=== PATIENT | female | born 1935 | race Hispanic/Latino ===

== ENCOUNTER 2017-06-22 08:54 | Outpatient (CLI) | payer MEDICARE ==
--- NOTE | 2017-06-24 15:09 | Vascular Lab Report ---
MESENTERIC ARTERIAL DUPLEX Reason for exam: Mesenteric artery insufficiency Comments: The aorta is patent. Flow velocities are within normal limits. Minimal atherosclerotic change is identified. No aneurysmal dilatation is noted. The celiac artery is patent. Flow velocities are extremely elevated. Plaque is seen near the origin. The superior mesenteric artery is patent. Flow velocities are extremely elevated 690 cm/s. Plaque is seen near the origin of the vessel. A caloric challenge was given. The patient did complain of pain during the period of observation afterword. The superior mesenteric artery was interrogated for approximately 20 minutes after the meal. Flow velocities and the skin mesenteric artery increase significantly during the period of observation. Impression: This study is highly suggestive of the presence of mesenteric artery occlusive disease with symptoms. Recommend further evaluation including CT angiography clinically appropriate.
== END 2017-06-22 08:55 | disposition home or self-care (01) ==
LOC: VAS 08:54
PROVIDERS: ATTEND Surgery Vascular Surgery
DX: K55.069 Acute infarction of intestine, part and extent unspecified (principal); I70.213 Atherosclerosis of native arteries of extremities with intermittent claudication, bilateral legs; I20.8 Other forms of angina pectoris; M25.50 Pain in unspecified joint
CPT/HCPCS: 93979

== ENCOUNTER 2017-07-13 08:37 | Outpatient (CLI) | payer MEDICARE ==
[2017-07-13 09:14] LABS: Blood Urea Nitrogen 17 mg/dL (7-17)
--- NOTE | 2017-07-15 15:20 | Cat Scan Report ---
FINAL REPORT EXAM: CT ANGIO ABDOMEN PELVIS HISTORY: OTHER FORMS OF ANGINA PECTORIS COMPARISON: None. TECHNIQUE: Multiple contiguous axial images were obtained from the lung bases to the pubic symphysis after administration of IV contrast. Reformatted sagittal and coronal images were available for review. FINDINGS: Lung bases: Mild peripheral fibrotic changes.. Visualized heart and mediastinum: Pacemaker leads are visualized. Normal heart size. There is a small hiatal hernia. Postsurgical changes of the gastric cardia. Liver: There is a calcified granuloma in the right hepatic lobe. The liver is otherwise normal in appearance.. Spleen: Normal. Pancreas: Normal. Gallbladder and Biliary Tree: The gallbladder has been surgically removed. No biliary ductal dilatation. Adrenal glands: Normal. Kidneys: Symmetric enhancement to both kidneys. No hydronephrosis. Bladder: Normal. Pelvic organs: The uterus has been surgically removed. The bilateral ovaries are not well visualized. Bowel: No focal wall thickening. No evidence of obstruction. The appendix is not clearly identified, but there are no pericecal inflammatory changes. Peritoneum: No significant mesenteric adenopathy. No free air or free fluid. Vasculature: There are scattered atherosclerotic plaques and calcifications of the abdominal aorta. There is no evidence of aneurysm or dissection. There is plaque and calcification at the origin of celiac axis with moderate stenosis. There is some plaque and calcification at the origin of the superior mesenteric artery without significant stenosis. The bilateral renal arteries are patent. The inferior mesenteric artery is patent. There are plaques and calcifications at the aortic bifurcation extending into the bilateral common iliac arteries. There is a small focal dissection at the origin of the left common iliac artery. There is a stent within the right external iliac artery. The left external iliac artery is patent. The bilateral internal iliac arteries are patent. Normal appearance of the portal venous system and the inferior vena cava. Bones and soft tissues: No suspicious osseous lesions. No acute fracture or dislocation. There is diffuse osteopenia.The soft tissues are normal. IMPRESSION: 1. Normal caliber of the abdominal aorta without evidence of dissection or aneurysm. Scattered atherosclerotic plaques and calcifications. 2. 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 3. 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 4. Patent stent within the right external iliac artery. 5. Postsurgical changes of the gastric cardia.
== END 2017-07-13 08:38 | disposition home or self-care (01) ==
LOC: CT 08:37
PROVIDERS: ATTEND Surgery Vascular Surgery
DX: I20.8 Other forms of angina pectoris (principal); I65.23 Occlusion and stenosis of bilateral carotid arteries; I70.213 Atherosclerosis of native arteries of extremities with intermittent claudication, bilateral legs; I73.00 Raynaud's syndrome without gangrene; K55.1 Chronic vascular disorders of intestine; K76.89 Other specified diseases of liver; K44.9 Diaphragmatic hernia without obstruction or gangrene; I70.0 Atherosclerosis of aorta; I48.91 Unspecified atrial fibrillation; E78.5 Hyperlipidemia, unspecified; I10 Essential (primary) hypertension
CPT/HCPCS: 36415; 74174; 82565; 84520; Q9967

== ENCOUNTER 2017-07-15 08:33 | Day surgery (SDC) | payer MEDICARE ==
[~2017-07-15 08:33] MED LIST: ANCEF/STERILE WATER 2 GM/20 ML 2 GM/20 ML SYRINGE IV NR
[2017-07-15] MEDS: NACL 0.9% 1000 ML 1,000 ML IV SCH ×2 (10:00→14:08)
[2017-07-15 10:20] LABS: Basophils % (Auto) 0.4 % (0.0-1.8); Eosinophils # (Auto) 0.1 K/mm3 (0.0-0.4); Eosinophils % (Auto) 2.3 % (0.0-4.3); Hematocrit 35.8 % (30.3-42.9); Hemoglobin 12.1 gm/dl (10.1-14.3); Lymphocytes # (Auto) 0.7 K/mm3 (1.2-5.4); Lymphocytes % (Auto) 15.1 % (13.4-35.0); Mean Corpuscular HGB Conc 34 % (30-34); Mean Corpuscular Hemoglobin 31 pg (28-32); Mean Corpuscular Volume 91 fl (79-97); Monocytes # (Auto) 0.5 K/mm3 (0.0-0.8); Monocytes % (Auto) 10.6 % (0.0-7.3); Platelet Count 168 K/mm3 (140-440); Red Blood Count 3.95 M/mm3 (3.65-5.03); Red Cell Distribution Width 15.2 % (13.2-15.2)
[2017-07-15 10:28] LABS: BUN/Creatinine Ratio 27; Blood Urea Nitrogen 16 mg/dL (7-17); Calcium 8.9 mg/dL (8.4-10.2); Hemolysis Index 73
[2017-07-15 10:35] LABS: INR 1.02 (0.87-1.13); Partial Thromboplastin Time 28.4 Sec. (24.2-36.6)
[2017-07-15] MEDS ORDERED: HEPARIN/NS 5000 UNIT/500ML(CATH LAB) 1,000 ML IR ONE ×2 (12:16→12:41)
[2017-07-15] MEDS ORDERED: ANCEF/STERILE WATER 2 GM/20 ML 2 GM/20 ML SYRINGE IV ONE (12:17)
[2017-07-15] MEDS ORDERED: XYLOCAINE 2% INFILTRATI ONE (12:17)
[2017-07-15] MEDS ORDERED: NITROGLYCERIN SYRINGE 3 ML ONE (12:36)
[2017-07-15] MEDS ORDERED: CALAN ONE (12:36)
[2017-07-15] MEDS: SUBLIMAZE ONE ×3 (14:07→15:18)
[2017-07-15] MEDS: VERSED ONE ×2 (14:07→15:18)
[2017-07-15] MEDS: HEPARIN 10,000 UNITS/10 ML ONE ×3 (14:07→15:10)
[2017-07-15] MEDS ORDERED: PROTAMINE SULFATE ONE (15:23)
[2017-07-15] MEDS ORDERED: PLAVIX ONE (16:59)
[2017-07-15] MEDS ORDERED: PLAVIX PO ONE ×2 (17:05→18:00)
[2017-07-15] MEDS ORDERED: TYLENOL PO ONE (17:06)
--- NOTE | 2017-07-15 17:33 | Post Operative Note ---
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 both successfully treated with primary stenting incidental notation of severe right renal artery stenosis Procedure: Percutaneous balloon angioplasty and stent of the superior mesenteric artery Percutaneous balloon angioplasty and stent of the celiac trunk Intravascular ultrasound of the superior mesenteric artery Intravascular ultrasound of the celiac trunk Duplex guided cannulation left brachial artery Anesthesia: other (moderate sedation: Start time 1407 end time 1606 total sedation time 119 minutes) Surgeon: AIDA SEN Estimated blood loss: minimal Pathology: none Condition: stable Disposition: same day
[2017-07-15 17:41] VITALS: BP 156/71
--- NOTE | 2017-07-15 17:43 | Short Stay Summary ---
Short Stay Documentation Date of service: 07/15/17 Narrative H&P: Admitted to the [employer] for outpatient treatment of mesenteric ischemia known stenosis of the celiac artery and the superior mesenteric artery - History H&P: obtained from office - Allergies and Medications Current Medications: Allergies No Known Allergies Allergy (Verified 07/15/17 08:55) Home Medications Medication Instructions Recorded Confirmed Last Taken Type ALBUTEROL Inhaler [ProAir HFA 90 mcg INHALATION DAILY PRN 07/15/17 07/15/1705/27 History Inhaler] 2 Adult Low Dose Aspirin EC 81 mg PO DAILY 07/15/17 07/15/17 07/14/17 History 81mg Digoxin [Digox] 125 mcg PO DAILY 07/15/17 07/15/17 07/14/17 History 125mcg Flecainide [Tambocor] 50 mg PO TID 07/15/17 07/15/17 07/15/17 History 50mg Rosuvastatin Calcium 10 mg PO QHS 07/15/17 07/15/17 07/14/17 History 10mg Active Medications Clopidogrel Bisulfate (Plavix) 150 mg PO ONCE ONE Stop: 07/15/17 18:01 Last Admin: 07/15/17 17:00 Dose: 150 mg Cefazolin Sodium (Ancef/Sterile Water 2 Gm/20 Ml) 2 gm in 20 mls @ 80 mls/hr IV PREOP NR; Protocol Stop: 07/15/17 23:59 Last Admin: 07/15/17 14:08 Dose: 20 mls Sodium Chloride (Nacl 0.9% 1000 Ml) 1,000 mls @ 42 mls/hr IV DIRECT TREMAYNE Last Admin: 07/15/17 14:08 Dose: 42 mls/hr - Brief post op/procedure progress note Date of procedure: 07/15/17 Pre-op diagnosis: mesenteric ischemia Post-op diagnosis: same Procedure: Percutaneous balloon angioplasty and stent of the superior mesenteric artery Percutaneous balloon angioplasty and stent of the celiac trunk Intravascular ultrasound of the superior mesenteric artery Intravascular ultrasound of the celiac trunk Duplex guided cannulation left brachial artery Anesthesia: other (moderate sedation) Findings: Severe stenosis of the celiac artery trunk and the spermatic mesenteric artery both satisfactorily corrected with balloon angioplasty and primary stenting incidental notation of severe right renal artery stenosis Surgeon: AIDA SEN Estimated blood loss: minimal Pathology: none Condition: stable - Hospital course Hospital course: Benign. Preprocedure headache treated with Tylenol. Plavix loading successful. - Disposition Condition at discharge: Stable Disposition: [id number] TO HOME OR SELFCARE - Discharge Diagnoses (1) Chronic mesenteric ischemia Status: Chronic (2) Atrial fibrillation Status: Chronic Qualifiers: Atrial fibrillation type: unspecified Qualified Code(s): I48.91 - Unspecified atrial fibrillation (3) Hypertension Status: Chronic Qualifiers: Hypertension type: unspecified Qualified Code(s): I10 - Essential (primary ) hypertension (4) Hyperlipidemia Status: Chronic Qualifiers: Hyperlipidemia type: unspecified Qualified Code(s): E78.5 - Hyperlipidemia , unspecified Short Stay Discharge Plan Activity: advance as tolerated Weight Bearing Status: Full Weight Bearing Diet: low cholesterol Wound: keep clean and dry Special Instructions: no heavy lifting Follow up with: SKYLA ROBLES NP [Other] - 7 Days AIDA SEN MD [Staff Physician] - 14 Days Prescriptions: Clopidogrel [Plavix] 75 mg PO QDAY #90 tablet
--- NOTE | 2017-07-15 19:09 | Operative Report ---
Operative Report Operative Report: Date of procedure: 07/15/2017 Pre-operative diagnosis: Mesenteric ischemia , chronic Post-operative diagnosis: Same Procedure name(s): #1 percutaneous balloon angioplasty and stent of the celiac artery #2 percutaneous balloon angioplasty and stent of the superior mesenteric artery #3 intravascular ultrasound of the celiac artery #4 intravascular ultrasound of the superior mesenteric artery #5 ultrasound guided cannulation of the left brachial artery Surgeon: Dieudonne Carrera MD Finance Lead: None Anesthesia: Moderate sedation total sedation time 119 minutes EBL: Less than 25 mL Specimen(s): None Complications: None Findings: High-grade stenotic lesions involving the origins of both the superior mesenteric artery and the celiac artery treated with balloon angioplasty and stenting Procedure: Patient in the supine position with the left arm extended the extremity was prepped and draped using standard sterile technique. Ultrasound probe was used to identify the patent brachial artery and through anesthetized skin the vessel was cannulated using real-time imaging using a micropuncture needle. The microwire was placed and a 5 Prydeinig glide sheath was advanced into the brachial artery. A radial cocktail was delivered followed shortly by complete heparinization. A pigtail catheter and advantage wire was then advanced under fluoroscopic guidance into the upper abdominal aorta. Contrast was injected after obtaining lateral views on the x-ray to which showed dilatation of both the celiac and the superior mesenteric arteries. Incidental notation of Severe right renal stenosis was made. I then exchanged the introducer for a angled 90 cm [place] destination 6 Prydeinig sheath and placed it just above the origin of the celiac artery in the using a vertebral catheter and the advantage wire I was able to successfully cannulate the celiac artery. Contrast injection confirmed adequate placement and advanced the vertebral into the. The advantage wire was exchanged for an 014 and the dawit was advanced into the celiac artery and images obtained confirming a high-grade was determined using the orifice of the post-cannulation artery was approximately 6 mm in diameter. Then obtained a 6 x 17 balloon expandable stent advanced across the lesion as previously delineated by both angiography and the dawit catheter deployed the stent with resolution of the high-grade stenosis.. Interrogation of the artery confirmed the diameter was dramatically improved. I then backed the wires out of the celiac artery and then using identical technique was able to cannulate the superior mesenteric artery. This confirmed a high-grade orificial lesion and it was subsequently treated with a 7 x 17 mm balloon- expandable stent. Interrogation by the intravascular ultrasound confirmed resolution of the high-grade stenosis. Angiography confirmed the dawit findings are resolution of the stenosis and documented no extravasation of contrast. Procedure was then terminated with technical success and the sheath was removed and prolonged counter pressure held over the brachial artery until hemostasis was obtained. The suture was returned to the recovery area in stable condition.
== END 2017-07-15 18:37 | disposition home or self-care (01) ==
LOC: CATHLABREC 08:33
PROVIDERS: ATTEND Surgery Vascular Surgery
DX: K55.059 Acute (reversible) ischemia of intestine, part and extent unspecified (principal); K55.1 Chronic vascular disorders of intestine; I77.4 Celiac artery compression syndrome; I48.2 Chronic atrial fibrillation; I10 Essential (primary) hypertension; E78.5 Hyperlipidemia, unspecified; Z79.82 Long term (current) use of aspirin; Z90.710 Acquired absence of both cervix and uterus; Z95.0 Presence of cardiac pacemaker; Z98.84 Bariatric surgery status; Z98.890 Other specified postprocedural states; Z88.2 Allergy status to sulfonamides; K21.9 Gastro-esophageal reflux disease without esophagitis; I73.00 Raynaud's syndrome without gangrene; Z87.891 Personal history of nicotine dependence
CPT/HCPCS: 36415; 37236; 37237; 37252; 37253; 75726; 76937; 80048; 85025; 85610; 85730; C1753; C1769; C1887; C1894; J0690; J1644; J2250; J3010; J7030; J2720; Q9967

== ENCOUNTER 2017-08-19 15:54 | Emergency (ER) | payer MEDICARE ==
[2017-08-19 16:44] LABS: Basophils % (Auto) 0.9 % (0.0-1.8); Eosinophils # (Auto) 0.1 K/mm3 (0.0-0.4); Eosinophils % (Auto) 2.8 % (0.0-4.3); Hematocrit 32.2 % (30.3-42.9); Hemoglobin 11.3 gm/dl (10.1-14.3); Lymphocytes # (Auto) 0.9 K/mm3 (1.2-5.4); Lymphocytes % (Auto) 20.9 % (13.4-35.0); Mean Corpuscular HGB Conc 35 % (30-34); Mean Corpuscular Hemoglobin 32 pg (28-32); Mean Corpuscular Volume 90 fl (79-97); Monocytes # (Auto) 0.5 K/mm3 (0.0-0.8); Monocytes % (Auto) 12.6 % (0.0-7.3); Platelet Count 179 K/mm3 (140-440); Red Blood Count 3.58 M/mm3 (3.65-5.03)
[2017-08-19 16:59] LABS: Alanine Aminotransferase 10 units/L (7-56); Albumin 4.1 g/dL (3.9-5); BUN/Creatinine Ratio 23; Blood Urea Nitrogen 16 mg/dL (7-17); Hemolysis Index 1
[2017-08-19 17:16] LABS: Bilirubin,Urine NEG (Negative); Blood,Urine SM (Negative); Color,Urine Yellow (Yellow); Mucus,Urine FEW /HPF; Protein,Urine <15 mg/dL mg/dL (Negative); Urobilinogen,Urine < 2.0 mg/dL (<2.0)
--- NOTE | 2017-08-19 19:22 | Emergency Department Report ---
HPI - General Chief Complaint: Abdominal Pain Time Seen by Provider: 08/19/17 18:58 - HPI HPI: 81-year-old female presents to the emergency department, sent in by the PCP, for evaluation of some right-sided abdominal, flank and back pain that has been going on and getting progressively worse over the past 2 weeks. Patient says when it happens she sometimes has to sit down for a while and rest and then the pain will go away. She denies any nausea, vomiting, fever, visible hematuria, dysuria. There are times where the patient will feel like she has to urinate and is unable to do so and then she will "pee a lot." She takes Tylenol for her discomfort with some transient relief. Patient went in to see the primary care physician thinking that she might have some type of a urinary tract infection or kidney infection. The urinalysis did not appear to show any UTI at that time but she did have some blood in the urine. She was sent for a CT scan of the abdomen and pelvis without contrast to an outpatient imaging center and the family was told that it was unremarkable but they were still told to come to the emergency department secondary to her age and the fact that she had an angioplasty of the celiac, SMA arteries done in early July here by Dr. Carrera. ED Past Medical Hx - Past Medical History Previous Medical History?: Yes Hx Arthritis: Yes Additional medical history: hematuria - Surgical History Past Surgical History?: Yes Additional Surgical History: Mesentery artery stent, Abd surgery, Colon resection - Social History Smoking Status: Former Smoker Substance Use Type: Tranquilizers - Medications Home Medications: Home Medications Medication Instructions Recorded Confirmed Last Taken Type ALBUTEROL Inhaler [ProAir HFA 90 mcg INHALATION DAILY PRN 07/15/17 07/15/1705/27 History Inhaler] 2 Adult Low Dose Aspirin EC 81 mg PO DAILY 07/15/17 07/15/17 07/14/17 History 81mg Clopidogrel [Plavix] 75 mg PO QDAY #90 tablet 07/15/17 Unknown Rx Digoxin [Digox] 125 mcg PO DAILY 07/15/17 07/15/17 07/14/17 History 125mcg Flecainide [Tambocor] 50 mg PO TID 07/15/17 07/15/17 07/15/17 History 50mg Rosuvastatin Calcium 10 mg PO QHS 07/15/17 07/15/17 07/14/17 History 10mg ED Review of Systems ROS: Stated complaint: STINT CHECK AND BACK PAIN Other details as noted in HPI Comment: All other systems reviewed and negative Constitutional: denies: chills, fever Eyes: denies: eye pain, eye discharge, vision change ENT: denies: ear pain, throat pain Respiratory: denies: cough, shortness of breath, wheezing Cardiovascular: denies: chest pain, palpitations Gastrointestinal: abdominal pain. denies: vomiting Genitourinary: denies: urgency, dysuria, discharge Musculoskeletal: back pain. denies: joint swelling Skin: denies: rash, lesions Neurological: denies: headache, weakness, paresthesias Physical Exam - Physical Exam Vital Signs: Vital Signs 08/19/17 08/19/17 16:02 18:50 Temperature 98.7 F 98.0 F Pulse Rate 59 L 66 Respiratory 18 18 Rate Blood Pressure 150/46 Blood Pressure 183/70 [Right] O2 Sat by Pulse 96 96 Oximetry Physical Exam: GENERAL: The patient is well-developed well-nourished. HENT: Normocephalic. Atraumatic. Patient has moist mucous membranes. EYES: Extraocular motions are intact. Pupils equal reactive to light bilaterally. NECK: Supple. Trachea is midline. CHEST/LUNGS: Clear to auscultation. There is no respiratory distress noted. HEART/CARDIOVASCULAR: Regular. There is no tachycardia. There is no murmur. ABDOMEN: Abdomen is soft, nontender. Patient has normal bowel sounds. There is no abdominal distention. SKIN: Skin is warm and dry. NEURO: The patient is awake, alert, and oriented. The patient is cooperative. The patient has no focal neurologic deficits. The patient has normal speech and gait. MUSCULOSKELETAL: There is no tenderness or deformity. There is no limitation range of motion. There is no evidence of acute injury. BACK: No midline thoracic or lumbar tenderness to palpation, step-off or deformity. There is some reproducible tenderness to palpation to the lumbar right paraspinal muscles which are taut. ED Course Vital Signs 08/19/17 08/19/17 16:02 18:50 Temperature 98.7 F 98.0 F Pulse Rate 59 L 66 Respiratory 18 18 Rate Blood Pressure 150/46 Blood Pressure 183/70 [Right] O2 Sat by Pulse 96 96 Oximetry - Consultations Consultation #1: I spoke with Dr. Hannah, the vascular surgeon tongue lining stitcher for Dr. Carrera. Dr. Hannah agrees that the patient appeared low probability for any occlusion of her vascular abdominal stents. However with her history of the previous mesenteric ischemia and her complaint of back and abdominal pain, it was suggested that a CT angiography of the abdomen and pelvis could be done to make sure that these stents are patent and not the source of her symptoms. After the CT was done, Dr. Hannah was once again contacted and he took a look at the CT and did not see any problem with the stents and feels that she is cleared from a vascular standpoint. However he will have the office call her and arrange a follow-up appointment this coming Thursday. 08/20/17 00:39 ED Medical Decision Making - Lab Data Result diagrams: 08/19/17 16:18 08/19/17 16:18 - Radiology Data Radiology results: report reviewed PROCEDURE: CT ANGIO ABDOMEN PELVIS TECHNIQUE: Computerized axial tomographic angiography of the abdomen and pelvis was performed after the IV injection of iodinated nonionic contrast. The image data was postprocessed using 2-dimensional multiplanar reformatted (MPR) and 3-dimensional (MIP and/or volume rendered) techniques. HISTORY: Abd, flank pain. Hx of stents in SMA, Celiac COMPARISON: 07/13/2017 FINDINGS: Visualized lower thorax: No acute abnormality. Liver: Normal size and attenuation. Spleen: Normal size and attenuation. Gallbladder and biliary system: Normal. Pancreas: Normal. Adrenals: Normal. Kidneys: Normal. GI tract: No bowel obstruction or inflammation is seen. There are clips at the gastroesophageal junction.. Lymph nodes and mesentery: Normal. Vasculature: There have been vascular stents placed at the origins of the celiac and superior mesenteric arteries, which appear patent. The distal branches of the celiac artery as well as superior mesenteric artery are patent. There is patent inferior mesenteric artery, with atherosclerotic calcification of the origin. There is atherosclerotic calcification of bilateral proximal renal arteries, right greater than left. There is atherosclerotic calcification of the aorta, with no aneurysm or dissection. There is a stent in the right external iliac artery, which is patent. There is atherosclerotic calcification of the right common femoral artery Bladder: Normal. Reproductive organs: Uterus is absent. Peritoneum: No free fluid. Musculoskeletal structures: No significant abnormality. Other: None. IMPRESSION: Vascular stents have been placed at the origins of the celiac artery and superior mesenteric artery, which are patent. No vascular occlusion is seen. No bowel obstruction or inflammation is seen Transcribed By: [facility] Dictated By: CARISSA CARLIN M.D. Electronically Authenticated By: CARISSA CARLIN M.D. Signed Date/Time: 08/19/17 7473 - Medical Decision Making Patient came to the hospital with a 2 week history of some pain to the right side of the low back, flank and abdomen. She had had some hematuria and the primary care office and a CT that showed a left kidney cyst. On examination here today, patient has some reproducible pain to the right lumbar paraspinal region. There is no numbness or paresthesias, current problems with bowel or bladder or any neurological deficits. She appears low suspicion for any of the emergent back condition such as cauda equina, epidural abscess or cord compression. Labs were unremarkable. As previously mentioned, I was in contact with the patient's vascular surgery team and we did a CT angiography of the abdomen and pelvis that did not show any occlusion of her previously placed vascular abdominal stents. Vital signs stable throughout her ED course. Potentially the patient has some musculoskeletal pain, or she may have already passed a kidney stone, versus other etiology. However the patient does appear safe for discharge home at this time. She will follow-up with her primary care physician, has been given a referral for urology and will be set up to follow up with vascular on Thursday. She will return to the ER for any worsening of her symptoms or any acute distress. - Differential Diagnosis nephrolithiasis, shingles, muscle spasm, contusion Critical Care Time: No Critical care attestation.: If time is entered above; I have spent that time in minutes in the direct care of this critically ill patient, excluding procedure time. ED Disposition Clinical Impression: Flank pain Back pain Qualifiers: Back pain location: back pain in unspecified location Chronicity: unspecified Back pain laterality: right Qualified Code(s): M54.9 - Dorsalgia, unspecified Hypertension Qualifiers: Hypertension type: essential hypertension Qualified Code(s): I10 - Essential ( primary) hypertension Abdominal pain Qualifiers: Abdominal location: unspecified location Qualified Code(s): R10.9 - Unspecified abdominal pain Disposition: TO HOME OR SELFCARE Is pt being admited?: No Condition: Stable Instructions: Abdominal Pain (ED), Hypertension (ED), Back Pain (ED) Additional Instructions: Please follow-up with your primary care physician in the next few days. You will be set up to see your vascular surgeon for an appointment on Thursday. I have given you a referral for a local urologist, Dr. Malik, to follow up regarding the history of blood in the urine. Return to the emergency Department with any worsening of your symptoms or any acute distress. Referrals: BERTO ROBLES DNP [Other] - 3-5 Days VANCE MALIK MD [Staff Physician] - 3-5 Days Time of Disposition: 22:10
[2017-08-19 20:25] LABS: INR 1.07 (0.87-1.13)
[2017-08-19 20:26] LABS: Partial Thromboplastin Time 28.4 Sec. (24.2-36.6)
[2017-08-19] MEDS ORDERED: NACL 0.9% 500 ML 500 ML IV SCH (21:00)
--- NOTE | 2017-08-19 21:45 | Event Note ---
Date: 08/19/17 81 year old female with chronic mesenteric ischemia s/p SMA and celiac artery stenting with excellent technical result by Dr. Carrera. On ASA and plavix. Has vague abdominal pain and back pain. No recurrence of fear of food. Seen by PCP and sent to ER due to concern about mesenteric ischemia given recent procedure. Pretest probably low, but recommend CTA of the abdomen and pelvis to exclude early stent occlusion. CTA demonstrates widely patent celiac and sma arteries. No vascular compromise. Discussed with Dr. Powers. I contacted office to have patient followup on thursday , but no evidence of vascular compromise/issue.
--- NOTE | 2017-08-19 21:59 | Cat Scan Report ---
FINAL REPORT PROCEDURE: CT ANGIO ABDOMEN PELVIS TECHNIQUE: Computerized axial tomographic angiography of the abdomen and pelvis was performed after the IV injection of iodinated nonionic contrast. The image data was postprocessed using 2-dimensional multiplanar reformatted (MPR) and 3-dimensional (MIP and/or volume rendered) techniques. HISTORY: Abd, flank pain. Hx of stents in SMA, Celiac COMPARISON: 07/13/2017 FINDINGS: Visualized lower thorax: No acute abnormality. Liver: Normal size and attenuation. Spleen: Normal size and attenuation. Gallbladder and biliary system: Normal. Pancreas: Normal. Adrenals: Normal. Kidneys: Normal. GI tract: No bowel obstruction or inflammation is seen. There are clips at the gastroesophageal junction.. Lymph nodes and mesentery: Normal. Vasculature: There have been vascular stents placed at the origins of the celiac and superior mesenteric arteries, which appear patent. The distal branches of the celiac artery as well as superior mesenteric artery are patent. There is patent inferior mesenteric artery, with atherosclerotic calcification of the origin. There is atherosclerotic calcification of bilateral proximal renal arteries, right greater than left. There is atherosclerotic calcification of the aorta, with no aneurysm or dissection. There is a stent in the right external iliac artery, which is patent. There is atherosclerotic calcification of the right common femoral artery Bladder: Normal. Reproductive organs: Uterus is absent. Peritoneum: No free fluid. Musculoskeletal structures: No significant abnormality. Other: None. IMPRESSION: Vascular stents have been placed at the origins of the celiac artery and superior mesenteric artery, which are patent. No vascular occlusion is seen. No bowel obstruction or inflammation is seen
[2017-08-19 22:40] VITALS: BP 178/64
== END 2017-08-19 22:38 | disposition home or self-care (01) ==
LOC: ED 15:54
DX: R10.9 Unspecified abdominal pain (principal); Z87.891 Personal history of nicotine dependence; M54.5 Low back pain; I10 Essential (primary) hypertension; M19.90 Unspecified osteoarthritis, unspecified site
CPT/HCPCS: 36415; 74174; 80053; 81001; 82140; 85025; 85610; 85730; 99284; Q9967

== ENCOUNTER 2017-11-19 07:07 | Day surgery (SDC) | payer MEDICARE ==
[~2017-11-19 07:07] MED LIST changes: +NACL 0.9% 1000 ML 1,000 ML IV SCH
[2017-11-19 07:45] LABS: Basophils % (Auto) 1.1 % (0.0-1.8); Eosinophils # (Auto) 0.2 K/mm3 (0.0-0.4); Eosinophils % (Auto) 3.9 % (0.0-4.3); Hematocrit 35.7 % (30.3-42.9); Hemoglobin 11.9 gm/dl (10.1-14.3); Lymphocytes # (Auto) 1.1 K/mm3 (1.2-5.4); Lymphocytes % (Auto) 24.9 % (13.4-35.0); Mean Corpuscular HGB Conc 33 % (30-34); Mean Corpuscular Hemoglobin 30 pg (28-32); Mean Corpuscular Volume 90 fl (79-97); Monocytes # (Auto) 0.5 K/mm3 (0.0-0.8); Monocytes % (Auto) 12.1 % (0.0-7.3); Platelet Count 191 K/mm3 (140-440); Red Blood Count 3.96 M/mm3 (3.65-5.03); Red Cell Distribution Width 14.9 % (13.2-15.2)
[2017-11-19 07:55] LABS: INR 0.99 (0.87-1.13)
[2017-11-19 07:56] LABS: BUN/Creatinine Ratio 27; Blood Urea Nitrogen 16 mg/dL (7-17); Hemolysis Index 2; Partial Thromboplastin Time 27.9 Sec. (24.2-36.6)
[2017-11-19] MEDS ORDERED: ANCEF/STERILE WATER 2 GM/20 ML 2 GM/20 ML SYRINGE IV ONE (09:14)
[2017-11-19] MEDS ORDERED: XYLOCAINE 2% INFILTRATI ONE (09:14)
[2017-11-19] MEDS ORDERED: HEPARIN/NS 5000 UNIT/500ML(CATH LAB) 1,000 ML IR ONE (09:14)
[2017-11-19] MEDS: VERSED ONE ×3 (09:57→11:01)
[2017-11-19] MEDS: SUBLIMAZE ONE ×3 (09:57→11:02)
[2017-11-19] MEDS: HEPARIN 10,000 UNITS/10 ML ONE ×3 (10:03→10:44)
[2017-11-19] MEDS ORDERED: SUBLIMAZE ONE (11:20)
[2017-11-19] MEDS ORDERED: VERSED ONE (11:32)
--- NOTE | 2017-11-19 12:02 | Post Operative Note ---
Pre-op diagnosis: chronic mesenteric ischemia, PVD with claudication Post-op diagnosis: same Findings: Significant in stent restenosis of the celiac artery, mild peripheral arterial occlusive disease bilaterally. Successful revascularization of the celiac artery using IVUS and balloon angioplasty. Mild tibial occlusive disease bilaterally not requiring intervention Procedure: #1 percutaneous balloon angioplasty of the celiac artery #2 intravascular ultrasound of the celiac artery #3 selective mesenteric angiogram, prior to decision to intervene, no prior films available with change of condition #4 bilateral lower extremity runoff #5 duplex guided cannulation right common femoral artery #6 moderate sedation: Starting time 0957 End time 1126 total moderate sedation time: 89 minutes Anesthesia: other (moderate sedation total time 89 minutes) Surgeon: AIDA SEN Estimated blood loss: none Pathology: none Condition: stable Disposition: same day
--- NOTE | 2017-11-19 12:09 | Short Stay Summary ---
Short Stay Documentation Date of service: 11/19/17 Narrative H&P: Patient admitted to the cardiac [facility] for outpatient diagnostic selective mesenteric angiogram with possible intervention for chronic recurrent intestinal ischemia and lower extremity runoff for peripheral vascular disease with claudication - History H&P: obtained from office - Allergies and Medications Current Medications: Allergies Sulfa (Sulfonamide Antibiotics) Allergy (Verified 11/19/17 08:19) Rash Home Medications Medication Instructions Recorded Confirmed Last Taken Type ALBUTEROL Inhaler (OR & NICU) 90 mcg INHALATION DAILY PRN 07/15/17 11/19/1711/26 History [ProAir HFA Inhaler] 2 puff Clopidogrel [Plavix] 75 mg PO QDAY #90 tablet 07/15/17 11/19/17 11/18/17 09:30 Rx 75mg Digoxin [Digox] 125 mcg PO DAILY 07/15/17 11/19/17 11/18/17 History .125mcg Flecainide [Tambocor] 50 mg PO TID 07/15/17 11/19/17 11/18/17 History 50mg Fludrocortisone [Florinef] 0.1 mg PO DAILY 11/19/17 11/19/17 11/18/17 History 0.1mg Active Medications Cefazolin Sodium (Ancef/Sterile Water 2 Gm/20 Ml) 2 gm in 20 mls @ 80 mls/hr IV PREOP NR; Protocol Stop: 11/19/17 23:59 Last Admin: 11/19/17 09:51 Dose: 20 mls Sodium Chloride (Nacl 0.9% 1000 Ml) 1,000 mls @ 42 mls/hr IV DIRECT TREMAYNE Last Admin: 11/19/17 08:24 Dose: 42 mls/hr - Brief post op/procedure progress note Date of procedure: 11/19/17 Procedure: Pre-op diagnosis: chronic mesenteric ischemia, PVD with claudication Post-op diagnosis: same Findings: Significant in stent restenosis of the celiac artery, mild peripheral arterial occlusive disease bilaterally. Successful revascularization of the celiac artery using IVUS and balloon angioplasty. Mild tibial occlusive disease bilaterally not requiring intervention Procedure: #1 percutaneous balloon angioplasty of the celiac artery #2 intravascular ultrasound of the celiac artery #3 selective mesenteric angiogram, prior to decision to intervene, no prior films available with change of condition #4 bilateral lower extremity runoff #5 duplex guided cannulation right common femoral artery #6 moderate sedation: Starting time 0957 End time 1126 total moderate sedation time: 89 minutes Anesthesia: other (moderate sedation total time 89 minutes) Surgeon: AIDA SEN Estimated blood loss: none Pathology: none Condition: stable Disposition: same day - Hospital course Hospital course: Benign - Disposition Condition at discharge: Stable Disposition: DC- TO HOME OR SELFCARE - Discharge Diagnoses (1) Claudication of both lower extremities Status: Chronic (2) Chronic mesenteric ischemia Status: Chronic Short Stay Discharge Plan Activity: advance as tolerated Weight Bearing Status: Weight Bear as Tolerated Diet: regular Wound: keep clean and dry Special Instructions: no heavy lifting Follow up with: PRIMARY CARE, [Primary Care Provider] - 7 Days AIDA SEN MD [Staff Physician] - 14 Days ERIS KHAN MD [Staff Physician] - 6 Weeks
[2017-11-19 13:47] VITALS: BP 146/50
--- NOTE | 2017-11-26 20:03 | Operative Report ---
PREOPERATIVE DIAGNOSIS: Chronic mesenteric ischemia, recurrent, peripheral vascular disease with claudication. POSTOPERATIVE DIAGNOSIS: Chronic mesenteric ischemia, recurrent, peripheral vascular disease with claudication. OPERATIVE PROCEDURE: 1. Percutaneous balloon angioplasty of the celiac artery. 2. Intravascular ultrasound of the celiac artery. 3. Selective mesenteric angiogram prior to the decision to intervene. No prior films available to change the condition. 4. Bilateral lower extremity runoff. 5. Duplex guided cannulation of right common femoral artery. 6. Moderate sedation. Start time: 09:57. End Time: 11:26. Total moderate sedation time 89 minutes. SURGEON: Dieudonne Carrera M.D. ESTIMATED BLOOD LOSS: Negligible. PATIENT CONDITION: Stable. COMPLICATIONS: None. INSTRUMENT COUNTS: Correct. SPECIMENS: None. 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 Successful revascularization of the celiac artery using IVUS and balloon angioplasty with improvement of luminal diameter. Mild tibial occlusive disease bilaterally, not requiring intervention. SURGICAL DETAILS: The patient in the supine position. After adequate levels of moderate sedation were obtained, both groins were prepped and draped using standard sterile technique. Duplex guidance was used to gain access to a patent common femoral artery and that vessel was then cannulated under real time imaging with a needle and a microwire. The needle was removed and exchanged for a micro sheath. A [employer] catheter was then inserted retrograde into the abdominal aorta and a 6-[place] introducer was then placed in the right groin. The patient was heparinized. A catheter was then advanced to the proximal stent and contrast was injected, which showed the abdominal aorta be patent. The celiac stent extended approximately 1/3 across the diameter of the aorta and appeared to be angulated and possibly highly stenotic versus fracture. The SMA stent was widely patent. Using a variety of guide catheters, guide sheaths, wires and several different catheter configurations, I was ultimately able to cannulate the celiac artery and get a wire into the splenic artery. There, I used the wire as a rail and was able to advance the catheter into and inject contrast, which suggested a significant stenosis of the celiac artery. The intravascular ultrasound was used to interrogate the area and confirmed approximately 90% stenosis of the mid stent. I was then able to get a 6 balloon across that area and then angioplastied that to your profile that resulted in the residual lumen of only 20% narrowing, which was a considerable improvement. Should note the patient was heparinized. Once I was able to improve the caliber of the stent, I then withdrew the guidewires and catheters and then proceeded to do an aortogram with runoff, which showed there was bilateral wall disease, but no significant stenotic lesions from the distal aorta all the way through the mid thighs bilaterally. There was some disease at the adductor canal bilaterally, not exceeding 20%. Both limbs exhibited 2-vessel runoff to the foot with some modest narrowing, but certainly not enough to consider any intervention for just claudication type symptoms. At this point, the procedure was terminated and the guidewires and catheters were removed and the arteriotomy site was then closed with an Angio-Seal. The patient was then returned to recovery room in stable condition having tolerated the procedure well. Sponge and needle counts were correct. JOB# [id number] HELLEN/RODNEY
== END 2017-11-19 14:24 | disposition home or self-care (01) ==
LOC: CATHLABREC 07:07
PROVIDERS: ATTEND Surgery Vascular Surgery
DX: K55.1 Chronic vascular disorders of intestine (principal); I70.213 Atherosclerosis of native arteries of extremities with intermittent claudication, bilateral legs; K21.9 Gastro-esophageal reflux disease without esophagitis; I25.10 Atherosclerotic heart disease of native coronary artery without angina pectoris; G47.30 Sleep apnea, unspecified; I48.91 Unspecified atrial fibrillation; E78.00 Pure hypercholesterolemia, unspecified; Z79.899 Other long term (current) drug therapy; Z79.01 Long term (current) use of anticoagulants; Z88.2 Allergy status to sulfonamides; Z98.84 Bariatric surgery status; Z95.0 Presence of cardiac pacemaker; Z90.710 Acquired absence of both cervix and uterus; Z87.891 Personal history of nicotine dependence; Z80.9 Family history of malignant neoplasm, unspecified
CPT/HCPCS: 36415; 37246; 37252; 75716; 75726; 76937; 80048; 85025; 85610; 85730; 99156; 99157; C1725; C1753; C1760; C1769; C1887; C1894; J0690; J1644; J2250; J3010; J7030; 36248; Q9967